=== PATIENT | female | born 1975 | race American Indian/Alaskan Native ===

== ENCOUNTER 2019-02-17 14:01 | Outpatient (CLI) | payer BC ==
[2019-02-17 14:30] LABS: Basophils # (Auto) 0.1 K/mm3 (0.0-0.1); Basophils % (Auto) 0.9 % (0.0-1.8); Eosinophils % (Auto) 0.7 % (0.0-4.3); Hematocrit 33.1 % (30.3-42.9); Hemoglobin 10.7 gm/dl (10.1-14.3); Lymphocytes # (Auto) 2.7 K/mm3 (1.2-5.4); Lymphocytes % (Auto) 38.5 % (13.4-35.0); Mean Corpuscular HGB Conc 32 % (30-34); Mean Corpuscular Volume 79 fl (79-97); Monocytes # (Auto) 0.7 K/mm3 (0.0-0.8); Monocytes % (Auto) 9.3 % (0.0-7.3); Platelet Count 509 K/mm3 (140-440); Red Cell Distribution Width 18.6 % (13.2-15.2)
[2019-02-17 14:58] LABS: Alanine Aminotransferase 9 units/L (7-56); Albumin 3.9 g/dL (3.9-5); BUN/Creatinine Ratio 20; Blood Urea Nitrogen 10 mg/dL (7-17); Calcium 8.9 mg/dL (8.4-10.2); Hemolysis Index 1; Iron 54 ug/dL (37-170)
[2019-02-21 18:11] LABS: Vitamin D, 25-OH, D2 <4 ng/mL
== END 2019-02-17 14:02 | disposition home or self-care (01) ==
LOC: LAB 14:01
PROVIDERS: ATTEND Surgery
DX: Z98.84 Bariatric surgery status (principal)
CPT/HCPCS: 36415; 80053; 82306; 82607; 83540; 83970; 84425; 85025

== ENCOUNTER 2019-02-20 10:23 | Outpatient (CLI) | payer BC ==
--- NOTE | 2019-02-20 14:44 | Cat Scan Report ---
CT ABDOMEN WITH CONTRAST HISTORY: R10.9, UNSPECIFIE ABDOMINAL PAIN. COMPARISON: None. TECHNIQUE: CT images of the abdomen were obtained following administration of intravenous contrast. S agittal and coronal reformatted images. All CT scans at this location are performed using CT dose red uction for ALARA by means of automated exposure control. Please note the pelvis was mistakenly scanne d by the technologist as well. CONTRAST: 100 ml of intravenous contrast administered. FINDINGS: Abdomen: An umbilical hernia with a 2.7 cm neck is identified. The hernia sac deviates to the left l ower quadrant abdominal wall and measures 9 cm in length and 2.2 cm in diameter. Fat and a small amou nt of fluid are incorporated in the hernia sac. No evidence for bowel loops. Normal liver, biliary system, pancreas, spleen, kidneys and adrenal glands. 1 cm right renal cyst is noted. Previous gastric sleeve surgical changes are suspected. The bowel loops are within normal limits othe rwise. Normal appendix. The uterus is enlarged with multiple enhancing fibroids measuring up to 3 to 4 cm in diameter. The ad nexa are unremarkable. The bladder is within normal limits. The aorta is normal caliber. No evidence for ascites, adenopathy or acute inflammation. Lungs/bones: No significant abnormality IMPRESSION: Umbilical hernia containing fat and a small amount of fluid as described. Moderate uterine fibroid disease. Right renal cyst. Gastric sleeve surgical changes are suspected. Signer Name: Mitesh Umanzor Jr, MD Signed: 02/20/2019 2:40 PM Workstation Name: [id number]
== END 2019-02-20 10:24 | disposition home or self-care (01) ==
LOC: CT 10:23
PROVIDERS: ATTEND Surgery
DX: K42.9 Umbilical hernia without obstruction or gangrene (principal); D25.9 Leiomyoma of uterus, unspecified; N28.1 Cyst of kidney, acquired
CPT/HCPCS: 74160; Q9967

== ENCOUNTER 2019-05-20 09:30 | Outpatient (CLI) | payer BC ==
[2019-05-20 10:03] LABS: Basophils % (Auto) 0.5 % (0.0-1.8); Eosinophils # (Auto) 0.1 K/mm3 (0.0-0.4); Eosinophils % (Auto) 1.8 % (0.0-4.3); Hematocrit 35.4 % (30.3-42.9); Hemoglobin 11.2 gm/dl (10.1-14.3); Lymphocytes # (Auto) 2.9 K/mm3 (1.2-5.4); Lymphocytes % (Auto) 50.1 % (13.4-35.0); Mean Corpuscular HGB Conc 32 % (30-34); Mean Corpuscular Volume 80 fl (79-97); Monocytes # (Auto) 0.5 K/mm3 (0.0-0.8); Monocytes % (Auto) 7.7 % (0.0-7.3); Platelet Count 342 K/mm3 (140-440); Red Blood Count 4.45 M/mm3 (3.65-5.03); Red Cell Distribution Width 15.2 % (13.2-15.2)
[2019-05-20 10:23] LABS: Alanine Aminotransferase 9 units/L (7-56); Albumin 4.2 g/dL (3.9-5); BUN/Creatinine Ratio 15; Blood Urea Nitrogen 9 mg/dL (7-17); Calcium 9.2 mg/dL (8.4-10.2); Chol/HDL Ratio 2.94 %; HDL Cholesterol 72 mg/dL (40-59); Hemolysis Index 1; LDL Cholesterol,Direct 152 mg/dL (50-130)
[2019-05-20 11:09] LABS: Hepatitis C Virus Antibody Non-Reactive (NonReactive)
--- NOTE | 2019-05-20 14:20 | Mammography Report ---
DIGITAL SCREENING MAMMOGRAM WITH CAD, 05/20/2019 INDICATION: Baseline screening mammography. TECHNIQUE: Digital bilateral 2D mammography was obtained in the craniocaudal and mediolateral obliq ue projections. This examination was interpreted with the benefit of Computer-Aided Detection analysi s. COMPARISON: None. FINDINGS: Breast Density: The breasts are heterogeneously dense, which may obscure small masses. There is no evidence of dominant mass, suspicious calcifications or architectural distortion in eithe r breast. IMPRESSION: No mammographic evidence of malignancy. Follow up recommendation: Routine yearly BI-RADS Category 1: Negative. A "normal" or negative report should not discourage follow up or biopsy of a clinically significant f inding. A written summary of these findings will be mailed to the patient. The patient will be entered into a mammography reporting system which will generate a reminder letter for the patient's next appointmen t at the appropriate interval. The [employer] recommends yearly mammograms starting at age 40 and continuing as l abby as a woman is in good health. Breast MRI is recommended for women with an approximate 20-25% or greater lifetime risk of breast cancer, including women with a strong family history of breast or ova chau cancer or who have been treated for Hodgkin's disease. Signer Name: Eleno Ivey MD Signed: 05/20/2019 2:15 PM Workstation Name: [id number]
[2019-05-25 05:20] LABS: HIV-1 Antibody Differentiation SEE SCANNED RESULT; HIV-2 Antibody Differentiation SEE SCANNED RESULT
== END 2019-05-20 09:31 | disposition home or self-care (01) ==
LOC: MAMMO 09:30
PROVIDERS: ATTEND Obstetrics & Gynecology
DX: Z12.31 Encounter for screening mammogram for malignant neoplasm of breast (principal); Z13.1 Encounter for screening for diabetes mellitus; Z11.3 Encounter for screening for infections with a predominantly sexual mode of transmission; E78.5 Hyperlipidemia, unspecified; E03.9 Hypothyroidism, unspecified; E07.9 Disorder of thyroid, unspecified
CPT/HCPCS: 36415; 77067; 80053; 80061; 83036; 84443; 85025; 86592; 86689; 86706; 86803

== ENCOUNTER 2020-04-08 22:00 | Emergency (ER) | payer BC ==
[2020-04-08 23:09] VITALS: BP 149/94
--- NOTE | 2020-04-09 00:19 | XRay Report ---
CHEST PA AND LATERAL VIEWS INDICATION: cough. COMPARISON: 09/20/2016 FINDINGS: Support devices: None Heart: Normal and unchanged Lungs/Pleura: No acute pulmonary or pleural findings. IMPRESSION: 1. No significant abnormality and no interval change. Signer Name: Peter Mary MD Signed: 04/09/2020 12:14 AM Workstation Name: [id number]
[2020-04-09] MEDS ORDERED: dexAMETHasone 20 MG/5 ML VIAL IM ONE (01:43)
[2020-04-09] MEDS ORDERED: IPRATROPIUM/ALBUTEROL SULFATE 3 ML AMPUL.NEB IH ONE (01:43)
[2020-04-09] MEDS ORDERED: ACETAMINOPHEN 500 MG TAB PO ONE (01:44)
--- NOTE | 2020-04-09 03:14 | Emergency Department Report ---
- General Chief Complaint: Upper Respiratory Infection Stated Complaint: COUGH Source: patient Mode of arrival: Ambulatory Limitations: No Limitations - History of Present Illness Initial Comments: Patient is a 44-year-old -Gabonese female with a history of tobacco abuse and who presents to the ED with complaint of acute onset persistent nasal and sinus congestion, frontal sinus pressure, headache, persistent dry cough with shortness of breath and wheezing for the last 5 days, worse in the last 2 days. Patient states that she has not been able to sleep because of worsening cough which gets worse when she lays down. Patient states that her shortness of breath also gets worse whenever she has persistent coughing episodes. Patient states that no one else at home or at work is had similar symptoms. Patient denies dizziness, syncope, chest pain, fever, chills, nausea, vomiting, sore throat, back pain, neck pain, change in vision, seizures, abdominal pain, dysuria, urinary frequency and urgency or change in vision and palpitations. MD Complaint: cough, rhinorrhea, nasal congestion, sinus pain -: Sudden, days(s) (5) Severity scale (0 -10): 4 Quality: dull, aching Consistency: intermittent Improves With: nothing Worsens With: nothing Associated Symptoms: denies other symptoms, headache, rhinorrhea, nasal congestion, cough, shortness of breath. denies: fever, chills, myalgias, diap horesis, sore throat, chest pain, abdominal pain, nausea, vomiting, diarrhea, rash, confusion, right sweats, weight loss, epistaxis, hoarseness, ear pain Treatments Prior to Arrival: none - Related Data Previous Rx's Medication Instructions Recorded Last Taken Type Albuterol Sulfate [Proventil Hfa] 1 - 2 puff IH Q6H PRN #1 hfa.aer.ad 04/09/20 Unknown Rx Azithromycin [Zithromax Z-GRETCHEN] 250 mg PO DAILY #6 tablet 04/09/20 Unknown Rx Benzonatate [Tessalon Perles] 100 mg PO Q8HR #30 capsule 04/09/20 Unknown Rx Cetirizine HCl [Zyrtec 10mg tab] 10 mg PO DAILY #30 tablet 04/09/20 Unknown Rx Ibuprofen [Motrin] 600 mg PO Q8H PRN #24 tablet 04/09/20 Unknown Rx methylPREDNISolone [Medrol 4MG 4 mg PO DAILY #21 tab.ds.pk 04/09/20 Unknown Rx DOSEPAK (21 tabs)] Allergies Allergy/AdvReac Type Severity Reaction Status Date / Time No Known Allergies Allergy Unverified 02/20/19 10:23 ED Review of Systems ROS: Stated complaint: COUGH Other details as noted in HPI Constitutional: denies: chills, fever Eyes: denies: eye pain, eye discharge, vision change ENT: congestion, other (Nasal and sinus congestion). denies: ear pain, throat pain Respiratory: cough (Dry cough), shortness of breath, wheezing Cardiovascular: denies: chest pain, palpitations Endocrine: no symptoms reported Gastrointestinal: denies: abdominal pain, nausea, vomiting, diarrhea, hematochezia Genitourinary: denies: urgency, dysuria, discharge Musculoskeletal: denies: back pain, joint swelling, arthralgia Skin: denies: rash, lesions Neurological: headache. denies: weakness, paresthesias Psychiatric: denies: anxiety, depression Hematological/Lymphatic: denies: easy bleeding, easy bruising ED Past Medical Hx - Past Medical History Previous Medical History?: No - Surgical History Past Surgical History?: Yes Additional Surgical History: Gastric Sleeve. C-sections X 3 - Social History Smoking Status: Current Every Day Smoker Substance Use Type: None - Medications Home Medications: Home Medications Medication Instructions Recorded Confirmed Last Taken Type Albuterol Sulfate [Proventil Hfa] 1 - 2 puff IH Q6H PRN #1 hfa.aer.ad 04/09/20 Unknown Rx Azithromycin [Zithromax Z-GRETCHEN] 250 mg PO DAILY #6 tablet 04/09/20 Unknown Rx Benzonatate [Tessalon Perles] 100 mg PO Q8HR #30 capsule 04/09/20 Unknown Rx Cetirizine HCl [Zyrtec 10mg tab] 10 mg PO DAILY #30 tablet 04/09/20 Unknown Rx Ibuprofen [Motrin] 600 mg PO Q8H PRN #24 tablet 04/09/20 Unknown Rx methylPREDNISolone [Medrol 4MG 4 mg PO DAILY #21 tab.ds.pk 04/09/20 Unknown Rx DOSEPAK (21 tabs)] ED Physical Exam - General Limitations: No Limitations General appearance: alert, in no apparent distress - Head Head exam: Present: atraumatic, normocephalic, normal inspection - Eye Eye exam: Present: normal appearance, PERRL, EOMI Pupils: Present: normal accommodation - ENT ENT exam: Present: normal orophraynx, mucous membranes moist, TM's normal bilaterally, normal external ear exam, other (Grossly congested nasal passages; palpable bilateral maxillary sinus tenderness) - Neck Neck exam: Present: normal inspection, full ROM. Absent: tenderness, lymphadenopathy, thyromegaly - Respiratory Respiratory exam: Present: wheezes (Mildly diffuse coarse wheezes throughout). Absent: respiratory distress, rales, rhonchi, chest wall tenderness, accessory muscle use, decreased breath sounds, prolonged expiratory - Cardiovascular Cardiovascular Exam: Present: regular rate, normal rhythm, normal heart sounds. Absent: systolic murmur, diastolic murmur, rubs, gallop - GI/Abdominal GI/Abdominal exam: Present: soft, normal bowel sounds. Absent: tenderness, guarding, rebound, hyperactive bowel sounds, organomegaly - Extremities Exam Extremities exam: Present: normal inspection, full ROM, normal capillary refill - Back Exam Back exam: Present: normal inspection, full ROM. Absent: tenderness, CVA tenderness (R), CVA tenderness (L), muscle spasm, paraspinal tenderness, vertebral tenderness - Neurological Exam Neurological exam: Present: alert, oriented X3, CN II-XII intact, normal gait, reflexes normal - Psychiatric Psychiatric exam: Present: normal affect, normal mood - Skin Skin exam: Present: warm, dry, intact, normal color. Absent: rash ED Course Vital Signs 04/08/20 22:26 Temperature 99.3 F Pulse Rate 86 Respiratory 18 Rate Blood Pressure 149/94 O2 Sat by Pulse 98 Oximetry ED Medical Decision Making - Radiology Data Radiology results: report reviewed, image reviewed Findings [facility] [address] [place] [address] XRay Report Signed Patient: JAMES THOMAS MR#: [id number] : 1975 Acct:[id number] Age/Sex: 44 / F ADM Date: 04/08/20 Loc: ED Attending Dr: Ordering Physician: MAYE WHITLOCK MD Date of Service: 04/08/20 Procedure(s): XR chest routine 2V Accession Number(s): [id number] cc: ED MD CHINYERE Fluoro Time In Minutes: CHEST PA AND LATERAL VIEWS INDICATION: cough. COMPARISON: 09/20/2016 FINDINGS: Support devices: None Heart: Normal and unchanged Lungs/Pleura: No acute pulmonary or pleural findings. IMPRESSION: 1. No significant abnormality and no interval change. Signer Name: Peter Mary MD Signed: 04/09/2020 12:14 AM Workstation Name: [id number] Transcribed By: TM Dictated By: Peter Mary MD Electronically Authenticated By: Peter Mary MD Signed Date/Time: 04/09/2013 DD/ TD/TT: - Medical Decision Making This is a 44-year-old -Gabonese female with a history of tobacco abuse and who presents to the ED with complaint of acute onset persistent nasal and sinus congestion, frontal sinus pressure, headache, persistent dry cough with shortness of breath and wheezing for the last 5 days, worse in the last 2 days. Patient states that she has not been able to sleep because of worsening cough which gets worse when she lays down. Patient states that her shortness of breath also gets worse whenever she has persistent coughing episodes. Patient states that no one else at home or at work is had similar symptoms. In the ED, patient is alert and oriented x3 and is not in distress. Patient was treated in the ED with Decadron and DuoNeb x1. Chest x-ray shows no acute cardiopulmonary abnormalities or pneumonitis. On reevaluation, patient's wheezing resolved with treatment. Patient is hemodynamically stable with oxygen saturation of 98% in room air. Patient was discharged home on medications and advised to follow-up with her primary care physician in 5 to 7 days for reevaluation or return to the ED immediately if symptoms get worse. - Differential Diagnosis Pneumonia; bronchitis; sinusitis; URI; pharyngitis; reactive airway disease Critical care attestation.: If time is entered above; I have spent that time in minutes in the direct care of this critically ill patient, excluding procedure time. ED Disposition Clinical Impression: Acute non-recurrent maxillary sinusitis, Acute upper respiratory infection Acute bronchitis Qualifiers: Bronchitis organism: other organism Qualified Code(s): J20.8 - Acute bronchitis due to other specified organisms Disposition: DC-01 TO HOME OR SELFCARE Is pt being admited?: No Does the pt Need Aspirin: No Condition: Stable Instructions: Acute Bronchitis (ED), Acute Bacterial Rhinosinusitis (ED), Upper Respiratory Infection (ED) Additional Instructions: Chest x-ray shows no acute cardiopulmonary abnormalities or pneumonitis. Therefore take medications with food, drink plenty of fluids and follow-up with your primary care physician in 5 to 7 days for reevaluation. Return to the ED immediately if symptoms get worse. Otherwise consider quitting tobacco smoking habit to improve on your symptoms. Prescriptions: methylPREDNISolone [Medrol 4MG DOSEPAK (21 tabs)] 4 mg PO DAILY #21 tab.ds.pk Ibuprofen [Motrin] 600 mg PO Q8H PRN #24 tablet PRN Reason: Pain Albuterol Sulfate [Proventil Hfa] 1 - 2 puff IH Q6H PRN #1 hfa.aer.ad PRN Reason: Dyspnea Benzonatate [Tessalon Perles] 100 mg PO Q8HR #30 capsule Azithromycin [Zithromax Z-GRETCHEN] 250 mg PO DAILY #6 tablet Cetirizine HCl [Zyrtec 10mg tab] 10 mg PO DAILY #30 tablet Referrals: TOÑO KRUGER MD [Staff Physician] - 3-5 Days Forms: Work/School Release Form(ED) Time of Disposition: 03:19 Print Language: TURKISH
== END 2020-04-09 03:30 | disposition home or self-care (01) ==
LOC: ED 22:00
DX: J06.9 Acute upper respiratory infection, unspecified (principal); J01.00 Acute maxillary sinusitis, unspecified; J20.9 Acute bronchitis, unspecified; F17.200 Nicotine dependence, unspecified, uncomplicated; Z79.899 Other long term (current) drug therapy; Z98.890 Other specified postprocedural states
CPT/HCPCS: 71046; 94640; 96372; 99283; J1100

== ENCOUNTER 2020-05-27 23:43 | Emergency (ER) | payer BC ==
[2020-05-28 00:43] VITALS: BP 132/74
--- NOTE | 2020-05-28 01:55 | Emergency Department Report ---
Minor Respiratory - HPI Chief Complaint: Upper Respiratory Infection Stated Complaint: COUGH Duration: 2 Days Minor Respiratory: Yes Rhinorrhea, Yes Able to Tolerate Fluids, Yes Cough, No Sore Throat, No Ear Pain, No Sick Contacts, No Hemoptysis, No Chest Pain, No Shortness of Breath, No Fever Other History: The patient was evaluated in the emergency department for symptoms described in the history of present illness. He/she was evaluated in the context of the global COVID-19 pandemic, which necessitated consideration that the patient might be at risk for infection with the virus that causes COVID-19. Institutional protocols and algorithms that pertain to the evaluation of patients at risk for COVID-19 are in a state of rapid change based on information released by regulatory bodies including the CDC and federal and state organizations. These policies and algorithms were followed during the patient's care in the emergency department. Please note that these policies, procedures and recommendations changed on a rapid basis. 45-year-old - Malaysian female presents to the emergency room for ongoing cough stuffy nose postnasal drip and runny nose for several weeks. Patient was recently seen here in April 09 for the same complaint and was prescribed albuterol Zithromax Tessalon Perles cetirizine ibuprofen and a Medrol Dosepak. Patient did not follow-up with a primary care provider as she was advised. Patient denies any fever no chills no nausea no vomiting. ED Review of Systems ROS: Stated complaint: COUGH Other details as noted in HPI ED Past Medical Hx - Past Medical History Previous Medical History?: No - Surgical History Past Surgical History?: Yes Additional Surgical History: Gastric Sleeve. C-sections X 3 - Social History Smoking Status: Current Every Day Smoker Substance Use Type: None - Medications Home Medications: Home Medications Medication Instructions Recorded Confirmed Last Taken Type Albuterol Sulfate [Proventil Hfa] 1 - 2 puff IH Q6H PRN #1 hfa.aer.ad 04/09/20 Unknown Rx Azithromycin [Zithromax Z-GRETCHEN] 250 mg PO DAILY #6 tablet 04/09/20 Unknown Rx Benzonatate [Tessalon Perles] 100 mg PO Q8HR #30 capsule 04/09/20 Unknown Rx Cetirizine HCl [Zyrtec 10mg tab] 10 mg PO DAILY #30 tablet 04/09/20 Unknown Rx methylPREDNISolone [Medrol 4MG 4 mg PO DAILY #21 tab.ds.pk 04/09/20 Unknown Rx DOSEPAK (21 tabs)] Fluticasone Furoate [Flonase 1 spray NS QDAY #1 bottle 05/28/20 Unknown Rx Sensimist] Ibuprofen [Motrin 600 MG tab] 600 mg PO Q8H PRN #24 tablet 05/28/20 Unknown Rx Minor Respiratory Exam - Exam General: Vital signs noted. No distress. Alert and acting appropriately. HEENT: Yes Moist Mucous Membranes, No Pharyngeal Erythema, No Pharyngeal Exudates, No Rhinorrhea, No Conjuctival Injection, No Frontal Tenderness, No Maxillary Tenderness Ear: Neither TM Bulge, Neither TM Erythema, Neither EAC Pain, Neither EAC Discharge Neck: Yes Supple, No Adenopathy Lungs: Yes Good Air Exchange, No Wheezes, No Ronchi, No Stridor, No Cough, No Labored Respirations, No Retractions, No Use of Accessory Muscles, No Other Abnormal Lung Sounds Heart: Yes Regular, No Murmur Abdomen: Yes Normal Bowel Sounds, No Tenderness, No Peritoneal Signs Neurologic: Alert and oriented, no deficits. Musculoskeletal: Unremarkable. ED Course Vital Signs 05/28/20 00:31 Temperature 98.3 F Pulse Rate 73 Respiratory 16 Rate Blood Pressure 132/74 O2 Sat by Pulse 100 Oximetry Critical care attestation.: If time is entered above; I have spent that time in minutes in the direct care of this critically ill patient, excluding procedure time. ED Disposition Clinical Impression: Allergic rhinitis Disposition: DC-01 TO HOME OR SELFCARE Is pt being admited?: No Does the pt Need Aspirin: No Condition: Stable Instructions: Cough, Adult, [id number], Allergic Rhinitis, Adult, [id number] Additional Instructions: Continue with the cetirizine 10 mg daily you can take 25 mg of Benadryl at bedtime. Use Flonase nasal spray as prescribed. Continue with the Tessalon Perles for your cough. Is very important you follow-up with a primary care provider. Prescriptions: Fluticasone Furoate [Flonase Sensimist] 1 spray NS QDAY #1 bottle Ibuprofen [Motrin 600 MG tab] 600 mg PO Q8H PRN #24 tablet PRN Reason: Pain Referrals: PRIMARY MD CONY [Primary Care Provider] - 3-5 Days TOÑO KRUGER MD [Staff Physician] - 3-5 Days [facility] [Provider Group] - 3-5 Days Forms: Work/School Release Form(ED)
== END 2020-05-28 01:57 | disposition home or self-care (01) ==
LOC: ED 23:43 → EEVIPCON 23:43 → ED 05-28 01:57
DX: J30.9 Allergic rhinitis, unspecified (principal); F17.200 Nicotine dependence, unspecified, uncomplicated; Z98.890 Other specified postprocedural states; Z79.899 Other long term (current) drug therapy
CPT/HCPCS: 99282

== ENCOUNTER 2020-09-23 21:23 | Emergency (ER) | payer BC ==
--- NOTE | 2020-09-23 21:59 | Emergency Department Report ---
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 No numbness, no tingling, no fever, chills, sweats. ED Review of Systems ROS: Stated complaint: RT HAND INJURY Other details as noted in HPI Comment: All other systems reviewed and negative ED Past Medical Hx - Past Medical History Previous Medical History?: No - Surgical History Past Surgical History?: Yes Additional Surgical History: Gastric Sleeve. C-sections X 3 - Social History Smoking Status: Never Smoker Substance Use Type: None - Medications Home Medications: Home Medications Medication Instructions Recorded Confirmed Last Taken Type Albuterol Sulfate [Proventil Hfa] 1 - 2 puff IH Q6H PRN #1 hfa.aer.ad 04/09/20 Unknown Rx Azithromycin [Zithromax Z-GRETCHEN] 250 mg PO DAILY #6 tablet 04/09/20 Unknown Rx Benzonatate [Tessalon Perles] 100 mg PO Q8HR #30 capsule 04/09/20 Unknown Rx Cetirizine HCl [Zyrtec 10mg tab] 10 mg PO DAILY #30 tablet 04/09/20 Unknown Rx methylPREDNISolone [Medrol 4MG 4 mg PO DAILY #21 tab.ds.pk 04/09/20 Unknown Rx DOSEPAK (21 tabs)] Fluticasone Furoate [Flonase 1 spray NS QDAY #1 bottle 05/28/20 Unknown Rx Sensimist] Ibuprofen [Motrin 600 MG tab] 600 mg PO Q8H PRN #24 tablet 05/28/20 Unknown Rx Indomethacin [Indocin] 25 mg PO Q8H #20 capsule 09/23/20 Unknown Rx Upper Extremity Exam - Exam General: Vital signs noted. No distress. Alert and acting appropriately. Head and Torso: No HEENT Abnormality, No Neck Tenderness, No Chest/Lungs Abnormality, No Abdominal Tenderness, No Back Tenderness Shoulder Exam: Yes Normal Range of Motion in Shoulder, No Shoulder Tenderness, No Clavicle Tenderness, No Shoulder Deformity, No AC Joint Tenderness Arm Exam: No Arm/Humerus Tenderness, No Arm Deformity Elbow: No Elbow Tenderness, No Normal Range of Motion in Elbow, No Elbow Deformity Forearm: No Forearm Tenderness, No Forearm Deformity, No Pain with Pronation, No Pain with Supination Wrist: Yes Normal ROM in Wrist, No Wrist Tenderness, No Wrist Deformity, No Snuffbox Tenderness, No Pain with Axial Thumb Compression Hand: Yes Hand Tenderness, Yes Normal ROM in Digit(s), No Hand Deformity, No Digit Tenderness, No Digit(s) Deformity, No Tendon Dysfunction CMS Exam: No Broken Skin, No Normal Distal Pulses, No Normal Capillary Refill, No Normal Distal Sensation Hand L/R Back: 1 - Pain swelling to this region with some erythema. Worse with flexion. ED Course Vital Signs 09/23/20 21:41 Temperature 98.5 F Pulse Rate 81 Respiratory 18 Rate Blood Pressure 154/105 O2 Sat by Pulse 99 Oximetry ED Medical Decision Making - Medical Decision Making 45-year-old [place] female resents emerged department complaining of atraumatic pain to the right hand and in the area of the fifth metacarpal phalangeal joint which been present for about the last 2 days. X-rays did not reveal any significant pathology to this region although the joint is red swollen with some some tenderness. Pain is worse with palpation. The differential diagnosis does include the following listed below: Bacterial Infection Bone Tumor Cartilage Tear Cartilage Tumor Dislocations Soft Tissue Tumors Synovial Sarcoma Trauma? or Injury Also include in the differential diagnosis is gout as well as pseudogout which I feel is more along the lines of of what she is experiencing tonight. Plan will be to start on anti-inflammatory in the form of a steroid and something for analgesic control will hold off on the colchicine type medication as I do feel that this is more of a pseudogout presentation. Critical care attestation.: If time is entered above; I have spent that time in minutes in the direct care of this critically ill patient, excluding procedure time. ED Disposition Clinical Impression: Arthralgia of hand, right Disposition: DC- TO HOME OR SELFCARE Is pt being admited?: No Does the pt Need Aspirin: No Condition: Stable Instructions: Joint Pain, Hbrz-[id number]-[id number], How to Use Cold Therapy, Calcium Pyrophosphate Deposition, Uric Acid Nephropathy Prescriptions: Indomethacin [Indocin] 25 mg PO Q8H #20 capsule Referrals: PRIMARY CAREMD [Referring] - 3-5 Days [facility] MARKOS CALDERÓN MD [Primary Care Provider] - 3-5 Days [facility] [Provider Group] - 3-5 Days
--- NOTE | 2020-09-23 22:15 | XRay Report ---
RIGHT HAND, 3 VIEWS INDICATION / CLINICAL INFORMATION: pain and swelling. COMPARISON: None available. FINDINGS: No fracture or dislocation. No significant acute osseous abnormality. There is mild degenerative rhodes ge in the DIP joint of the middle finger. No soft tissue abnormality. IMPRESSION: No significant acute osseous or soft tissue abnormality. Signer Name: Darlene Ayala MD Signed: 09/23/2020 10:10 PM Workstation Name: [id number]
[2020-09-23] MEDS ORDERED: KETOROLAC 60 MG/2 ML INJ IM ONE (22:54)
[2020-09-23] MEDS ORDERED: oxyCODONE /ACETAMINOPHEN 5-325MG TAB PO ONE (22:54)
[2020-09-24 00:18] VITALS: BP 129/75
== END 2020-09-23 23:45 | disposition home or self-care (01) ==
LOC: ED 21:23
DX: M25.541 Pain in joints of right hand (principal); Z98.890 Other specified postprocedural states; Z79.899 Other long term (current) drug therapy
CPT/HCPCS: 73130; 96372; 99283; J1885

== ENCOUNTER 2020-10-31 08:00 | Outpatient (CLI) | payer BC ==
[2020-10-31 08:31] LABS: Basophils % (Auto) 0.5 % (0.0-1.8); Eosinophils % (Auto) 0.7 % (0.0-4.3); Hematocrit 31.5 % (30.3-42.9); Lymphocytes # (Auto) 2.7 K/mm3 (1.2-5.4); Lymphocytes % (Auto) 43.4 % (13.4-35.0); Mean Corpuscular HGB Conc 32 % (30-34); Mean Corpuscular Volume 74 fl (79-97); Monocytes # (Auto) 0.4 K/mm3 (0.0-0.8); Monocytes % (Auto) 6.9 % (0.0-7.3); Platelet Count 447 K/mm3 (140-440); Red Blood Count 4.29 M/mm3 (3.65-5.03); Red Cell Distribution Width 16.6 % (13.2-15.2)
[2020-10-31 08:53] LABS: Alanine Aminotransferase 14 units/L (7-56); Albumin 4.2 g/dL (3.9-5); Blood Urea Nitrogen 15 mg/dL (7-17); Calcium 9.1 mg/dL (8.4-10.2); Hemolysis Index 0
[2020-10-31 09:05] LABS: BUN/Creatinine Ratio 25
[2020-10-31 12:14] LABS: Hepatitis C Virus Antibody Non-Reactive (NonReactive)
== END 2020-10-31 08:01 | disposition home or self-care (01) ==
LOC: LAB 08:00
PROVIDERS: ATTEND Obstetrics & Gynecology
DX: Z13.1 Encounter for screening for diabetes mellitus (principal); Z13.29 Encounter for screening for other suspected endocrine disorder; Z13.0 Encounter for screening for diseases of the blood and blood-forming organs and certain disorders involving the immune mechanism; Z13.89 Encounter for screening for other disorder
CPT/HCPCS: 36415; 80053; 82306; 83036; 84443; 85025; 86592; 86689; 86706; 86803

== ENCOUNTER 2020-11-02 18:46 | Observation (INO) | payer BC ==
--- NOTE | 2020-11-02 18:50 | Event Note ---
ED Screening Note Date of service: 11/02/20 Time: 18:49 ED Screening Note: 45-year-old -Surinamese female presents with her son for slurred speech that started at 534 this evening. Patient reports she has a history of hypertension but has not been on any meds. She does not have any allergies to medications and currently does not take any. She is with her son that is able to give the story. This initial assessment/diagnostic orders/clinical plan/treatment(s) is/are subject to change based on patients health status, clinical progression and re- assessment by fellow clinical providers in the ED. Further treatment and workup at subsequent clinical providers discretion. Patient/guardian urged not to elope from the ED as their condition may be serious if not clinically assessed and managed. Initial orders include:
--- NOTE | 2020-11-02 19:00 | Emergency Department Report ---
ED Neuro Deficit HPI - General Chief Complaint: Neuro Symptoms/Deficit Stated Complaint: CODE STROKE Time Seen by Provider: 11/02/20 18:55 Source: family Mode of arrival: Ambulatory Limitations: No Limitations - History of Present Illness Initial Comments: Patient is a 45-year-old female that presents emergency room with difficulty speaking. Patient states that her symptoms started at 1734 today. Patient states that her symptoms are worsening. Patient states having difficulty forming words. Patient states she understands everything she just answers yes no is having difficulty making sounds. Patient denies blurry vision. Patient denies headache. Patient denies any difficulties walking or moving her arms and legs. Patient denies chest pain or shortness of breath. Patient denies recent travel. Patient denies recent international travel. Patient denies exposure to the novel coronavirus. Patient denies sick contacts. Patient denies fever and chills. Patient denies cough. Patient denies diarrhea. Patient denies coming in contact with anybody with symptoms of the novel coronavirus. -: Sudden Location: speech Presenting Symptoms: Present: Unable to Speak Clearly History of same: No Place: home Severity: severe Quality: constant Improves With: none Worsens With: none On Anticoagulants: No Context: sudden onset Associated Symptoms: denies other symptoms. denies: confusion, chest pain, cough, diaphoresis, fever/chills, headaches, loss of appetite, malise, nausea/vomiting, vertigo, seizures, shortness of breath, syncope, weakness Treatments Prior to Arrival: none - Related Data Home Medications: Previous Rx's Medication Instructions Recorded Last Taken Type Albuterol Sulfate [Proventil Hfa] 1 - 2 puff IH Q6H PRN #1 hfa.aer.ad 04/09/20 Unknown Rx Azithromycin [Zithromax Z-GRETCHEN] 250 mg PO DAILY #6 tablet 04/09/20 Unknown Rx Benzonatate [Tessalon Perles] 100 mg PO Q8HR #30 capsule 04/09/20 Unknown Rx Cetirizine HCl [Zyrtec 10mg tab] 10 mg PO DAILY #30 tablet 04/09/20 Unknown Rx methylPREDNISolone [Medrol 4MG 4 mg PO DAILY #21 tab.ds.pk 04/09/20 Unknown Rx DOSEPAK (21 tabs)] Fluticasone Furoate [Flonase 1 spray NS QDAY #1 bottle 05/28/20 Unknown Rx Sensimist] Ibuprofen [Motrin 600 MG tab] 600 mg PO Q8H PRN #24 tablet 05/28/20 Unknown Rx Indomethacin [Indocin] 25 mg PO Q8H #20 capsule 09/23/20 Unknown Rx Allergies/Adverse Reactions: Allergies Allergy/AdvReac Type Severity Reaction Status Date / Time No Known Allergies Allergy Verified 11/02/20 18:50 ED Review of Systems ROS: Stated complaint: CODE STROKE Other details as noted in HPI Constitutional: denies: chills, fever Eyes: denies: eye pain, eye discharge, vision change ENT: denies: ear pain, throat pain Respiratory: denies: cough, shortness of breath, wheezing Cardiovascular: denies: chest pain, palpitations Endocrine: no symptoms reported Gastrointestinal: denies: abdominal pain, nausea, diarrhea Genitourinary: denies: urgency, dysuria, discharge Musculoskeletal: denies: back pain, joint swelling, arthralgia Skin: denies: rash, lesions Neurological: as per HPI. denies: headache, weakness, paresthesias Psychiatric: denies: anxiety, depression Hematological/Lymphatic: denies: easy bleeding, easy bruising ED Past Medical Hx - Past Medical History Previous Medical History?: No - Surgical History Past Surgical History?: Yes Additional Surgical History: Gastric Sleeve. C-sections X 3 - Family History Family history: no significant - Social History Smoking Status: Never Smoker Substance Use Type: None - Medications Home Medications: Home Medications Medication Instructions Recorded Confirmed Last Taken Type Albuterol Sulfate [Proventil Hfa] 1 - 2 puff IH Q6H PRN #1 hfa.aer.ad 04/09/20 Unknown Rx Azithromycin [Zithromax Z-GRETCHEN] 250 mg PO DAILY #6 tablet 04/09/20 Unknown Rx Benzonatate [Tessalon Perles] 100 mg PO Q8HR #30 capsule 04/09/20 Unknown Rx Cetirizine HCl [Zyrtec 10mg tab] 10 mg PO DAILY #30 tablet 04/09/20 Unknown Rx methylPREDNISolone [Medrol 4MG 4 mg PO DAILY #21 tab.ds.pk 04/09/20 Unknown Rx DOSEPAK (21 tabs)] Fluticasone Furoate [Flonase 1 spray NS QDAY #1 bottle 05/28/20 Unknown Rx Sensimist] Ibuprofen [Motrin 600 MG tab] 600 mg PO Q8H PRN #24 tablet 05/28/20 Unknown Rx Indomethacin [Indocin] 25 mg PO Q8H #20 capsule 09/23/20 Unknown Rx ED Neuro Physical Exam - General Limitations: No Limitations General appearance: alert, in no apparent distress Suspected Stroke: Yes - Head Head exam: Present: atraumatic, normocephalic - Eye Eye exam: Present: normal appearance - ENT ENT exam: Present: mucous membranes moist - Neck Neck exam: Present: normal inspection - Respiratory Respiratory exam: Present: normal lung sounds bilaterally. Absent: respiratory distress - Cardiovascular Cardiovascular Exam: Present: regular rate, normal rhythm. Absent: systolic murmur, diastolic murmur, rubs, gallop - GI/Abdominal GI/Abdominal exam: Present: soft, normal bowel sounds - Rectal Rectal exam: Present: deferred - Extremities Exam Extremities exam: Present: normal inspection - Back Exam Back exam: Present: normal inspection - Neurological Exam Neurological exam: Present: alert, oriented X3 - NIHSS Assessment Interval: Baseline 1a. Level of Consciousness: alert/keenly responsive 1b. LOC Questions: answers both correctly 1c. LOC Commands: performs tasks correctly 2. Best Gaze: normal 3. Visual: no visual loss 4. Facial Palsy: normal symmetrical movement 5b. Motor Arm Right: no drift 5a. Motor Arm Left: no drift 6a. Motor Leg Left: no drift 6b. Motor Leg Right: no drift 7. Limb Ataxia: absent 8. Sensory: normal 9. Best Language: no aphasia 10. Dysarthria: mild/moderate dysarthria 11. Extinction/Inattention: no abnormality Total Score: 1 Stroke Severity: Minor Stroke - Psychiatric Psychiatric exam: Present: normal affect, normal mood - Skin Skin exam: Present: warm, dry, intact, normal color. Absent: rash ED Course - Reevaluation(s) Reevaluation #1: Patient able to articulate words better. Patient is still having some mild dysarthria. 11/02/20 19:50 Reevaluation #2: Patient speech has improved. Patient able to say her name with minimal dysarthria. Patient not able to speak in complete sentences clearly. 11/02/20 21:50 Reevaluation #3: I discussed all results with patient. I discussed plan of care with patient. Patient agrees with plan of care and admission. Patient to be admitted to the hospitalist service. 11/02/20 22:09 - Consultations Consultation #1: I discussed case again with the neurologist and neurologist recommends admission for MRI to rule out an acute stroke. 11/02/20 22:04 Consultation #2: Hospitalist consulted for admission. Hospitalist to admit patient. 11/02/20 22:08 - Lab Data Result diagrams: 11/02/20 19:36 11/02/20 19:36 Lab Results 11/02/20 11/02/20 11/02/20 Range/Units 19:36 19:36 19:36 WBC 6.0 (4.5-11.0) K/mm3 RBC 3.96 (3.65-5.03) M/mm3 Hgb 9.3 L (10.1-14.3) gm/dl Hct 29.6 L (30.3-42.9) % MCV 75 L (79-97) fl MCH 24 L (28-32) pg MCHC 31 (30-34) % RDW 17.1 H (13.2-15.2) % Plt Count 369 (140-440) K/mm3 Lymph % (Auto) 42.5 H (13.4-35.0) % [place]iteside % (Auto) 10.3 H (0.0-7.3) % Eos % (Auto) 1.5 (0.0-4.3) % Baso % (Auto) 0.6 (0.0-1.8) % Lymph # (Auto) 2.6 (1.2-5.4) K/mm3 [place] # (Auto) 0.6 (0.0-0.8) K/mm3 Eos # (Auto) 0.1 (0.0-0.4) K/mm3 Baso # (Auto) 0.0 (0.0-0.1) K/mm3 Seg Neutrophils % 45.1 (40.0-70.0) % Seg Neutrophils # 2.7 (1.8-7.7) K/mm3 PT 12.6 (12.2-14.9) Sec. INR 0.96 (0.87-1.13) APTT 31.7 (24.2-36.6) Sec. Thrombin Time 17.9 (15.1-19.6) Sec. Sodium (137-145) mmol/L Potassium (3.6-5.0) mmol/L Chloride (98-107) mmol/L Carbon Dioxide (22-30) mmol/L Anion Gap mmol/L BUN (7-17) mg/dL Creatinine (0.6-1.2) mg/dL Estimated GFR ml/min BUN/Creatinine Ratio % Glucose (65-100) mg/dL Calcium (8.4-10.2) mg/dL Total Bilirubin (0.1-1.2) mg/dL AST (5-40) units/L ALT (7-56) units/L Alkaline Phosphatase (35-129) units/L Total Creatine Kinase 119 (30-135) units/L CK-MB (CK-2) 1.4 (0.0-4.0) ng/mL CK-MB (CK-2) Rel Index 1.1 (0-4) Troponin T < 0.010 (0.00-0.029) ng/mL Total Protein (6.3-8.2) g/dL Albumin (3.9-5) g/dL Albumin/Globulin Ratio % // Range/Units 19:36 WBC (4.5-11.0) K/mm3 RBC (3.65-5.03) M/mm3 Hgb (10.1-14.3) gm/dl Hct (30.3-42.9) % MCV (79-97) fl MCH (28-32) pg MCHC (30-34) % RDW (13.2-15.2) % Plt Count (140-440) K/mm3 Lymph % (Auto) (13.4-35.0) % [place] % (Auto) (0.0-7.3) % Eos % (Auto) (0.0-4.3) % Baso % (Auto) (0.0-1.8) % Lymph # (Auto) (1.2-5.4) K/mm3 [place] # (Auto) (0.0-0.8) K/mm3 Eos # (Auto) (0.0-0.4) K/mm3 Baso # (Auto) (0.0-0.1) K/mm3 Seg Neutrophils % (40.0-70.0) % Seg Neutrophils # (1.8-7.7) K/mm3 PT (12.2-14.9) Sec. INR (0.87-1.13) APTT (24.2-36.6) Sec. Thrombin Time (15.1-19.6) Sec. Sodium 138 (137-145) mmol/L Potassium 3.5 L (3.6-5.0) mmol/L Chloride 106.2 (98-107) mmol/L Carbon Dioxide 21 L D (22-30) mmol/L Anion Gap 14 mmol/L BUN 12 (7-17) mg/dL Creatinine 0.5 L (0.6-1.2) mg/dL Estimated GFR > 60 ml/min BUN/Creatinine Ratio 24 % Glucose 95 (65-100) mg/dL Calcium 8.5 (8.4-10.2) mg/dL Total Bilirubin 0.30 (0.1-1.2) mg/dL AST 14 (5-40) units/L ALT 10 (7-56) units/L Alkaline Phosphatase 32 L (35-129) units/L Total Creatine Kinase (30-135) units/L CK-MB (CK-2) (0.0-4.0) ng/mL CK-MB (CK-2) Rel Index (0-4) Troponin T (0.00-0.029) ng/mL Total Protein 6.3 (6.3-8.2) g/dL Albumin 3.8 L (3.9-5) g/dL Albumin/Globulin Ratio 1.5 % - EKG Data -: EKG Interpreted by Nd EKG shows normal: sinus rhythm, axis, intervals, QRS complexes, ST-T waves Rate: normal - Radiology Data Radiology results: report reviewed NONENHANCED CT SCAN OF THE HEAD: INDICATION / CLINICAL INFORMATION: 45 years Female; MAIN. Slurred speech TECHNIQUE: Routine CT head without contrast. All CT scans at this location are performed using CT dose reduction for ALARA by means of automated exposure control. COMPARISON: None. FINDINGS: BRAIN / INTRACRANIAL CONTENTS: No intracerebral hemorrhage or hemorrhagic lesions; no stroke mimics No acute hemorrhage, mass effect, midline shift, hydrocephalus, or acute, large territorial infarct. No chronic infarct or focal atrophy. Normal brain volume and ventricular/sulcal size for age. No significant white matter abnormality. CRANIOCERVICAL JUNCTION: No significant abnormality. ORBITS: No significant abnormality of visualized orbits. SINUSES / MASTOIDS: No significant abnormality of the visualized paranasal sinuses or mastoid air cells. ADDITIONAL FINDINGS: None. IMPRESSION: No hemorrhage or stroke mimics; no acute focal parenchymal lesion in the colon no CT findings to suggest acute/subacute territorial infarction or acute lacune - Medical Decision Making Patient is a 45-year-old female that presents emergency room with complaints of dysarthria that started at 5 PM. Patient had a code stroke initiated in triage. Patient had a head CT which was negative for acute finding. Patient had labs done which were essentially unremarkable. Patient EKG which was negative for acute findings. I personally reviewed the EKG. EKG shows normal sinus rhythm and no ST changes. Neurology was also consulted early and the code stroke process. Neurology recommends admission to rule out acute stroke with MRI. Patient is not a candidate for TPA due to the low NIH scale. Patient admitted to the hospital service for further evaluation treatment. Critical care time documented due to the multiple reassessments, prolonged time at the bedside, interpretation of diagnostics and labs and discussion with consultants.. - Differential Diagnosis Stroke, weakness, dysarthria, psychosomatic Critical Care Time: Yes Critical care time in (mins) excluding proc time.: 35 Critical care attestation.: If time is entered above; I have spent that time in minutes in the direct care of this critically ill patient, excluding procedure time. Critical Care Time: 35 minutes ED Disposition Clinical Impression: Dysarthria Disposition: OP ADMIT IP TO THIS HOSP Is pt being admited?: Yes Does the pt Need Aspirin: No Condition: Critical Time of Disposition: 22:09
--- NOTE | 2020-11-02 19:09 | Consultation ---
Medications and Allergies Allergies Allergy/AdvReac Type Severity Reaction Status Date / Time No Known Allergies Allergy Verified 11/02/20 18:50 Home Medications Medication Instructions Recorded Confirmed Last Taken Type Albuterol Sulfate [Proventil Hfa] 1 - 2 puff IH Q6H PRN #1 hfa.aer.ad 04/09/20 Unknown Rx Azithromycin [Zithromax Z-GRETCHEN] 250 mg PO DAILY #6 tablet 04/09/20 Unknown Rx Benzonatate [Tessalon Perles] 100 mg PO Q8HR #30 capsule 04/09/20 Unknown Rx Cetirizine HCl [Zyrtec 10mg tab] 10 mg PO DAILY #30 tablet 04/09/20 Unknown Rx methylPREDNISolone [Medrol 4MG 4 mg PO DAILY #21 tab.ds.pk 04/09/20 Unknown Rx DOSEPAK (21 tabs)] Fluticasone Furoate [Flonase 1 spray NS QDAY #1 bottle 05/28/20 Unknown Rx Sensimist] Ibuprofen [Motrin 600 MG tab] 600 mg PO Q8H PRN #24 tablet 05/28/20 Unknown Rx Indomethacin [Indocin] 25 mg PO Q8H #20 capsule 09/23/20 Unknown Rx Assessment and Plan [facility] Consult Note # Demographics Consult Type: Acute Stroke Level 1 (0-4.5 hrs) Patient Location: Emergency Room First Name: Arleth Last Name: Fernando Date of : 1975 Age: 45 Gender: Female Time of Initial Page ( Time): 11/02/2020, 18:50 Time of Return Call ( Time): 11/02/2020, 18:51 # HPI History: 45F with slurred speech today starting 17:00 per patient local time. No blood thinner use. Tightness of her mouth. # Scores Time of exam and NIHSS ( Time): 11/02/2020, 18:55 Level of Consciousness 1a: [0] = Alert; keenly responsive LOC Questions 1b: [0] = Answers both questions correctly LOC Commands 1c: [0] = Performs both tasks correctly Best Gaze 2: [0] = Normal Visual 3: [0] = No visual loss Facial Palsy 4: [0] = Normal symmetrical movements Motor Arm Left 5a: [0] = No drift Motor Arm Right 5b: [0] = No drift Motor Leg Left 6a: [0] = No drift Motor Leg Right 6b: [0] = No drift Limb Ataxia 7: [0] = Absent Sensory 8: [0] = Normal Best Language 9: [0] = No aphasia Dysarthria 10: [1] = [id number] dysarthria Extinction and Inattention 11: [0] = No abnormality NIHSS Total: 1 # Assessment Impression: Other, Dysarthria, no focal deficit however. The speech pattern is atypical for stroke or other neurologic related. Could be mimic. # Logistics Telemedicine: Interactive 2 way audio and visual telecommunication technology was utilized during this visit
--- NOTE | 2020-11-02 19:23 | Cat Scan Report ---
NONENHANCED CT SCAN OF THE HEAD: INDICATION / CLINICAL INFORMATION: 45 years Female; MAIN. Slurred speech TECHNIQUE: Routine CT head without contrast. All CT scans at this location are performed using CT dos e reduction for ALARA by means of automated exposure control. COMPARISON: None. FINDINGS: BRAIN / INTRACRANIAL CONTENTS: No intracerebral hemorrhage or hemorrhagic lesions; no stroke mimics No acute hemorrhage, mass effect, midline shift, hydrocephalus, or acute, large territorial infarct. No chronic infarct or focal atrophy. Normal brain volume and ventricular/sulcal size for age. No sig nificant white matter abnormality. CRANIOCERVICAL JUNCTION: No significant abnormality. ORBITS: No significant abnormality of visualized orbits. SINUSES / MASTOIDS: No significant abnormality of the visualized paranasal sinuses or mastoid air eric ls. ADDITIONAL FINDINGS: None. IMPRESSION: No hemorrhage or stroke mimics; no acute focal parenchymal lesion in the colon no CT findings to sug gest acute/subacute territorial infarction or acute lacune Signer Name: Waldemar Portillo MD Signed: 11/02/2020 7:18 PM Workstation Name: [id number]
[2020-11-02 19:56] LABS: Basophils % (Auto) 0.6 % (0.0-1.8); Eosinophils # (Auto) 0.1 K/mm3 (0.0-0.4); Eosinophils % (Auto) 1.5 % (0.0-4.3); Hematocrit 29.6 % (30.3-42.9); Hemoglobin 9.3 gm/dl (10.1-14.3); Lymphocytes # (Auto) 2.6 K/mm3 (1.2-5.4); Lymphocytes % (Auto) 42.5 % (13.4-35.0); Mean Corpuscular HGB Conc 31 % (30-34); Mean Corpuscular Volume 75 fl (79-97); Monocytes # (Auto) 0.6 K/mm3 (0.0-0.8); Monocytes % (Auto) 10.3 % (0.0-7.3); Platelet Count 369 K/mm3 (140-440); Red Blood Count 3.96 M/mm3 (3.65-5.03); Red Cell Distribution Width 17.1 % (13.2-15.2)
[2020-11-02 20:10] LABS: INR 0.96 (0.87-1.13)
[2020-11-02 20:11] LABS: Partial Thromboplastin Time 31.7 Sec. (24.2-36.6); Thrombin Time 17.9 Sec. (15.1-19.6)
[2020-11-02 21:12] LABS: Creatine Kinase MB 1.4 ng/mL (0.0-4.0)
[2020-11-02 21:18] LABS: Alanine Aminotransferase 10 units/L (7-56); Albumin 3.8 g/dL (3.9-5); Blood Urea Nitrogen 12 mg/dL (7-17); Calcium 8.5 mg/dL (8.4-10.2); Hemolysis Index 6
[2020-11-02 21:29] LABS: BUN/Creatinine Ratio 24
[2020-11-02] MEDS ORDERED: ONDANSETRON 4 MG/2 ML INJ IV PRN (22:45)
[2020-11-02] MEDS ORDERED: ACETAMINOPHEN 325 MG TAB PO PRN (22:45)
[2020-11-02] MEDS ORDERED: MAGNESIUM HYDROXIDE (MOM) ORAL LIQD UDC PO PRN (22:45)
[2020-11-02] MEDS ORDERED: ALUM-MAG HYDROXIDE-SIMETHICONE 200-200-20MG/5ML ORAL LIQD 30 ML PO PRN (22:45)
[2020-11-02] MEDS ORDERED: SENNOSIDES 8.6 MG TAB PO PRN (22:45)
--- NOTE | 2020-11-02 22:59 | History and Physical Report ---
History of Present Illness Date of examination: 11/02/20 Date of admission: 11/02/20 22:11 Chief complaint: Dysarthria History of present illness: Patient is a 45-year-old female that presents emergency room with difficulty speaking. Patient states that her symptoms started at 1734 today. Patient states that her symptoms are worsening. Patient states having difficulty forming words. Patient states she understands everything she just answers yes no is having difficulty making sounds. Patient denies blurry vision. Patient denies headache. Patient denies any difficulties walking or moving her arms and legs. Patient denies chest pain or shortness of breath. ED work-up showed WBC 6.0 hemoglobin 9.3, platelet 369, sodium 138 potassium 3.5 creatinine 0.5, serum glucose 95 Calcium 8.5, troponin [address] of the head negative for acute finding. Patient seen in the ED at bedside on room air. Patient alert and oriented x3. Vital signs stable O2 sat 97 to 100% on room air. Patient reported history of slurred speech and difficulty bringing out her wor ds. She denies chest pain and shortness of breath at the time of assessment. She reported anxiety and overworking herself recently. She reported also history of tachycardia that resolved without treatment. Neurologist was consulted. MRI of the brain and echocardiogram ordered. I reviewed the patient medical record, lab values, and vital signs and no acute finding. We will follow-up with results of echo and MRI -r/o CVA Past History Past Medical History: hypertension, hyperlipidemia Past Surgical History: Other (gastric sleeve surgery) Social history: smoking Family history: diabetes, hypertension, stroke Medications and Allergies Allergies Allergy/AdvReac Type Severity Reaction Status Date / Time No Known Allergies Allergy Verified 11/02/20 18:50 Home Medications Medication Instructions Recorded Confirmed Last Taken Type Albuterol Sulfate [Proventil Hfa] 1 - 2 puff IH Q6H PRN #1 hfa.aer.ad 04/09/20 Unknown Rx Azithromycin [Zithromax Z-GRETCHEN] 250 mg PO DAILY #6 tablet 04/09/20 Unknown Rx Benzonatate [Tessalon Perles] 100 mg PO Q8HR #30 capsule 04/09/20 Unknown Rx Cetirizine HCl [Zyrtec 10mg tab] 10 mg PO DAILY #30 tablet 04/09/20 Unknown Rx methylPREDNISolone [Medrol 4MG 4 mg PO DAILY #21 tab.ds.pk 04/09/20 Unknown Rx DOSEPAK (21 tabs)] Fluticasone Furoate [Flonase 1 spray NS QDAY #1 bottle 05/28/20 Unknown Rx Sensimist] Ibuprofen [Motrin 600 MG tab] 600 mg PO Q8H PRN #24 tablet 05/28/20 Unknown Rx Indomethacin [Indocin] 25 mg PO Q8H #20 capsule 09/23/20 Unknown Rx Active Meds: Active Medications Acetaminophen (Acetaminophen 325 Mg Tab) 650 mg PO Q4H PRN PRN Reason: Pain MILD(1-3)/Fever >100.5/[place] Al Hydrox/Mg Hydrox/Simethicone (Alum-Mag Hydroxide-Simethicone 224-261-32er/5ml Oral Liqd 30 Ml) 30 ml PO Q4H PRN PRN Reason: Indigestion Famotidine (Famotidine 20 Mg/2 Ml Inj) 20 mg IV BID ABHI Magnesium Hydroxide (Magnesium Hydroxide (Mom) Oral Liqd Udc) 30 ml PO Q4H PRN PRN Reason: Constipation Ondansetron HCl (Ondansetron 4 Mg/2 Ml Inj) 4 mg IV Q8H PRN PRN Reason: Nausea And Vomiting Pravastatin Sodium (Pravastatin 40 Mg Tab) 40 mg PO QHS ABHI Senna (Sennosides 8.6 Mg Tab) 8.6 mg PO Q12HR PRN PRN Reason: Constipation Sodium Chloride (Sodium Chloride 0.9% 10 Ml Flush Syringe) 10 ml IV BID ABHI Sodium Chloride (Sodium Chloride 0.9% 10 Ml Flush Syringe) 10 ml IV PRN PRN PRN Reason: LINE FLUSH Review of Systems Ears, nose, mouth and throat: no bleeding gums Cardiovascular: no chest pain, no shortness of breath Respiratory: cough Gastrointestinal: no melena Genitourinary Female: no hematuria Rectal: no hemorrhoids Musculoskeletal: no neck stiffness, no neck pain Integumentary: no rash, no pruritis Neurological: no vertigo, no headaches, no change in speech Psychiatric: anxiety, depression Endocrine: other Hematologic/Lymphatic: no easy bruising, no easy bleeding Allergic/Immunologic: no urticaria Exam - Constitutional Vitals: Temp Pulse Resp BP Pulse Ox 98.0 F 62 17 104/50 99 11/02/20 19:25 11/02/20 22:30 11/02/20 22:30 11/02/20 22:30 11/02/20 22:30 General appearance: Present: mild distress, obese - EENT Eyes: Present: PERRL ENT: hearing intact, clear oral mucosa - Neck Neck: Present: supple, normal ROM - Respiratory Respiratory effort: normal Respiratory: bilateral: CTA - Cardiovascular Heart Sounds: Present: S1 & S2. Absent: rub, click - Extremities Extremities: pulses symmetrical, No edema Peripheral Pulses: within normal limits - Abdominal General gastrointestinal: Present: soft, non-tender, non-distended, normal bowel sounds Female genitourinary: Present: normal - Integumentary Integumentary: Present: clear, warm, dry - Musculoskeletal Musculoskeletal: gait normal, strength equal bilaterally - Psychiatric Psychiatric: appropriate mood/affect, intact judgment & insight - Neurologic Neurologic: CNII-XII intact, moves all extremities HEART Score - HEART Score Troponin: Troponin T < 0.010 ng/mL (0.00-0.029) 11/02/20 19:36 Results - Labs CBC & Chem 7: 11/02/20 19:36 11/02/20 19:36 Labs: Abnormal lab results 11/02/20 11/02/20 Range/Units 19:36 19:36 Hgb 9.3 L (10.1-14.3) gm/dl Hct 29.6 L (30.3-42.9) % MCV 75 L (79-97) fl MCH 24 L (28-32) pg RDW 17.1 H (13.2-15.2) % Lymph % (Auto) 42.5 H (13.4-35.0) % [place] % (Auto) 10.3 H (0.0-7.3) % Potassium 3.5 L (3.6-5.0) mmol/L Carbon Dioxide 21 L D (22-30) mmol/L Creatinine 0.5 L (0.6-1.2) mg/dL Alkaline Phosphatase 32 L (35-129) units/L Albumin 3.8 L (3.9-5) g/dL Assessment and Plan - Patient Problems (1) TIA (transient ischemic attack) Current Visit: Yes Status: Acute Plan to address problem: CT of the head -negative ECHO and MRI of the brain -ordered-f/u with result Neurologist consult ASA and statin (2) Hypertension Current Visit: Yes Status: Resolved Plan to address problem: monitor blood pressure Patient not on home bp med after Gastric surgery for weight loss. PRN Hydralazine (3) Hyperlipidemia Current Visit: Yes Status: Resolved Plan to address problem: Patient reports hx of hyperlidemia-has resolved after gastric sleeve Check Lipid profile. (4) Dysarthria Current Visit: Yes Status: Acute Plan to address problem: resolved-speech clear at the time of assessment (5) DVT prophylaxis Current Visit: Yes Status: Acute Plan to address problem: SQ lovenox
[2020-11-03] MEDS ORDERED: hydrALAZINE 20 MG/1 ML INJ IV PRN (02:42)
[2020-11-03 05:16] LABS: Basophils % (Auto) 0.7 % (0.0-1.8); Eosinophils # (Auto) 0.1 K/mm3 (0.0-0.4); Eosinophils % (Auto) 1.1 % (0.0-4.3); Hematocrit 28.9 % (30.3-42.9); Hemoglobin 9.1 gm/dl (10.1-14.3); Lymphocytes # (Auto) 2.6 K/mm3 (1.2-5.4); Lymphocytes % (Auto) 46.9 % (13.4-35.0); Mean Corpuscular HGB Conc 31 % (30-34); Mean Corpuscular Volume 74 fl (79-97); Monocytes # (Auto) 0.5 K/mm3 (0.0-0.8); Platelet Count 379 K/mm3 (140-440); Red Blood Count 3.93 M/mm3 (3.65-5.03); Red Cell Distribution Width 17.3 % (13.2-15.2)
[2020-11-03 05:48] LABS: Blood Urea Nitrogen 9 mg/dL (7-17); Calcium 7.9 mg/dL (8.4-10.2); Chol/HDL Ratio 3.21 %; HDL Cholesterol 55 mg/dL (40-59); Hemolysis Index 23; LDL Cholesterol,Direct 125 mg/dL (50-130)
[2020-11-03 05:52] LABS: BUN/Creatinine Ratio 15
[2020-11-03] MEDS ORDERED: ENOXAPARIN 40 MG/0.4 ML INJ SUB-Q SCH (10:00)
[2020-11-03] MEDS ORDERED: FAMOTIDINE 20 MG/2 ML INJ IV SCH (10:00)
[2020-11-03] MEDS ORDERED: ASPIRIN EC 81 MG TAB PO SCH (10:00)
--- NOTE | 2020-11-03 10:10 | Magnetic Resonance Report ---
MRI BRAIN 11/03/2020 INDICATION / CLINICAL INFORMATION: Slurred speech. Stroke.. TECHNIQUE: Multiplanar, multisequence MR images of the brain were obtained. COMPARISON: None available. FINDINGS: BRAIN / INTRACRANIAL CONTENTS: Unenhanced MR images of the brain demonstrate no evidence of acute abn ormality. Ventricles and sulci are normal in size and shape. There is no evidence of acute or chronic ischemic injury, hemorrhage, or mass. There are no abnormal extra-axial fluid collections. EXTRACRANIAL: Unremarkable CRANIOCERVICAL JUNCTION: No significant abnormality. VASCULAR FLOW-VOIDS: No significant abnormality. IMPRESSION: Negative unenhanced MRI of the brain. Signer Name: Jose E Santos MD Signed: 11/03/2020 10:06 AM Workstation Name: [id number]
--- NOTE | 2020-11-03 10:54 | Electrocardiograph Report ---
[facility] Test Date: 2020-11-02 Test Time: 19:25:59 Pat Name: JAMES THOMAS Department: Room: A457 1 Gender: F Vascular Ultrasound Technician: CAMI : 1975 Requested By: TY ROJAS Order Number: [id number] Reading MD: Matthieu Hutchinson Measurements Intervals [place] Rate: 70 P: 57 NC: 179 QRS: 25 QRSD: 74 T: 33 QT: 399 QTc: 430 Interpretive Statements Sinus rhythm No previous ECG available for comparison Electronically Signed On 11-03-2020 10:53:27 EDT by Matthieu Hutchinson
[2020-11-03 12:46] VITALS: BP 121/59
--- NOTE | 2020-11-03 13:05 | XRay Report ---
RIGHT ANKLE 2 VIEW(S) INDICATION / CLINICAL INFORMATION: swelling COMPARISON: None available. FINDINGS: BONES / JOINT(S): No acute fracture or subluxation. No significant arthritis. SOFT TISSUES: No significant abnormality. ADDITIONAL FINDINGS: None. Signer Name: Clarke Verde MD Signed: 11/03/2020 1:01 PM Workstation Name: [id number]
--- NOTE | 2020-11-03 13:34 | History and Physical Report ---
History of Present Illness Date of examination: 11/03/20 Date of admission: 11/02/20 22:11 Chief complaint: Dysarthia History of present illness: Dysarthria History of present illness: Patient is a 45-year-old female that presents emergency room with difficulty speaking. Patient states that her symptoms started at 1734 today. Patient s tates that her symptoms are worsening. Patient states having difficulty forming words. Patient states she understands everything she just answers yes no is having difficulty making sounds. Patient denies blurry vision. Patient denies headache. Patient denies any difficulties walking or moving her arms and legs. Patient denies chest pain or shortness of breath. According to pt. since saturday she is with intermittent CP and legs swelling -- she was anxious about her son -- and usually when get anxious she get intermittent symptoms of CP tightness at time speech difficulty she smokes 1-2 cigarett and day drink socially she is taking no medications at home ED work-up showed WBC 6.0 hemoglobin 9.3, platelet 369, sodium 138 potassium 3.5 creatinine 0.5, serum glucose 95 Calcium 8.5, troponin [address] of the head negative for acute finding. telle neurology was consulted. MRI of the brain and echocardiogram ordered. I reviewed the patient medical record, lab values, and vital signs and no acute finding. We will follow-up with results of echo and MRI -r/o CVA Past History Past Medical History: hypertension, hyperlipidemia Past Surgical History: Other (gastric sleeve surgery) Social history: smoking Family history: diabetes, hypertension, stroke Medications and Allergies Allergies Allergy/AdvReac Type Severity Reaction Status Date / Time No Known Allergies Allergy Verified 11/02/20 18:50 Home Medications Medication Instructions Recorded Confirmed Last Taken Type Albuterol Sulfate [Proventil Hfa] 1 - 2 puff IH Q6H PRN #1 hfa.aer.ad 04/09/20 Unknown Rx Azithromycin [Zithromax Z-GRETCHEN] 250 mg PO DAILY #6 tablet 04/09/20 Unknown Rx Benzonatate [Tessalon Perles] 100 mg PO Q8HR #30 capsule 04/09/20 Unknown Rx Cetirizine HCl [Zyrtec 10mg tab] 10 mg PO DAILY #30 tablet 04/09/20 Unknown Rx methylPREDNISolone [Medrol 4MG 4 mg PO DAILY #21 tab.ds.pk 04/09/20 Unknown Rx DOSEPAK (21 tabs)] Fluticasone Furoate [Flonase 1 spray NS QDAY #1 bottle 05/28/20 Unknown Rx Sensimist] Ibuprofen [Motrin 600 MG tab] 600 mg PO Q8H PRN #24 tablet 05/28/20 Unknown Rx Indomethacin [Indocin] 25 mg PO Q8H #20 capsule 09/23/20 Unknown Rx Active Meds: Active Medications Acetaminophen (Acetaminophen 325 Mg Tab) 650 mg PO Q4H PRN PRN Reason: Pain MILD(1-3)/Fever >100.5/CHAMPAGNE Al Hydrox/Mg Hydrox/Simethicone (Alum-Mag Hydroxide-Simethicone 510-466-01xg/5ml Oral Liqd 30 Ml) 30 ml PO Q4H PRN PRN Reason: Indigestion Famotidine (Famotidine 20 Mg/2 Ml Inj) 20 mg IV BID ABHI Magnesium Hydroxide (Magnesium Hydroxide (Mom) Oral Liqd Udc) 30 ml PO Q4H PRN PRN Reason: Constipation Ondansetron HCl (Ondansetron 4 Mg/2 Ml Inj) 4 mg IV Q8H PRN PRN Reason: Nausea And Vomiting Pravastatin Sodium (Pravastatin 40 Mg Tab) 40 mg PO QHS ABHI Senna (Sennosides 8.6 Mg Tab) 8.6 mg PO Q12HR PRN PRN Reason: Constipation Sodium Chloride (Sodium Chloride 0.9% 10 Ml Flush Syringe) 10 ml IV BID ABHI Sodium Chloride (Sodium Chloride 0.9% 10 Ml Flush Syringe) 10 ml IV PRN PRN PRN Reason: LINE FLUSH Review of Systems Ears, nose, mouth and throat: no bleeding gums Cardiovascular: no chest pain, no shortness of breath Respiratory: cough Gastrointestinal: no melena Genitourinary Female: no hematuria Rectal: no hemorrhoids Musculoskeletal: no neck stiffness, no neck pain Integumentary: no rash, no pruritis Neurological: no vertigo, no headaches, no change in speech Psychiatric: anxiety, depression Endocrine: other Hematologic/Lymphatic: no easy bruising, no easy bleeding Allergic/Immunologic: no urticaria Past History Past Medical History: hypertension, hyperlipidemia Past Surgical History: Other (gastric sleeve surgery) Social history: smoking Family history: diabetes, hypertension, stroke Medications and Allergies Allergies Allergy/AdvReac Type Severity Reaction Status Date / Time No Known Allergies Allergy Verified 11/02/20 18:50 Home Medications Medication Instructions Recorded Confirmed Last Taken Type Benzonatate [Tessalon Perles] 100 mg PO Q8HR #30 capsule 04/09/20 11/03/20 Unknown Rx Ibuprofen [Motrin 600 MG tab] 600 mg PO Q8H PRN #24 tablet 05/28/20 11/03/20 Unknown Rx Active Meds: Active Medications Acetaminophen (Acetaminophen 325 Mg Tab) 650 mg PO Q4H PRN PRN Reason: Pain MILD(1-3)/Fever >100.5/[place] Al Hydrox/Mg Hydrox/Simethicone (Alum-Mag Hydroxide-Simethicone 797-374-20ig/5ml Oral Liqd 30 Ml) 30 ml PO Q4H PRN PRN Reason: Indigestion Aspirin (Aspirin Ec 81 Mg Tab) 81 mg PO QDAY [facility] Last Admin: 11/03/20 10:52 Dose: 81 mg Documented by: Atorvastatin Calcium (Atorvastatin 40 Mg Tab) 40 mg PO QHS ABHI Enoxaparin Sodium (Enoxaparin 40 Mg/0.4 Ml Inj) 40 mg SUB-Q QDAY@1000 ABHI; Protocol Last Admin: 11/03/20 10:53 Dose: 40 mg Documented by: Famotidine (Famotidine 20 Mg/2 Ml Inj) 20 mg IV BID [facility] Last Admin: 11/03/20 10:53 Dose: 20 mg Documented by: Hydralazine HCl (Hydralazine 20 Mg/1 Ml Inj) 5 mg IV Q4HR PRN PRN Reason: SBP >/=160; DBP >/=100 Magnesium Hydroxide (Magnesium Hydroxide (Mom) Oral Liqd Udc) 30 ml PO Q4H PRN PRN Reason: Constipation Ondansetron HCl (Ondansetron 4 Mg/2 Ml Inj) 4 mg IV Q8H PRN PRN Reason: Nausea And Vomiting Senna (Sennosides 8.6 Mg Tab) 8.6 mg PO Q12HR PRN PRN Reason: Constipation Sodium Chloride (Sodium Chloride 0.9% 10 Ml Flush Syringe) 10 ml IV BID [facility] Last Admin: 11/03/20 10:53 Dose: 10 ml Documented by: Sodium Chloride (Sodium Chloride 0.9% 10 Ml Flush Syringe) 10 ml IV PRN PRN PRN Reason: LINE FLUSH Physical Examination - Vital Signs Vital Signs: Vital Signs Pulse Resp BP Pulse Ox 73 17 142/83 99 11/02/20 19:16 11/02/20 19:16 11/02/20 19:16 11/02/20 19:16 - Constitutional General appearance: comfortable - EENT EENT: Present: PERRL, mucous membranes moist - Respiratory Respiratory: Present: chest non-tender, lungs clear - Cardiovascular Cardiovascular: Present: regular rate, normal S1, normal S2 Extremities: Present: no peripheral edema bilatateraly - Gastrointestinal Gastrointestinal: Present: normoactive bowel sounds - Integumentary Integumentary: Present: normal - Neurologic Cranial nerve examination: PERRL, EOMI, intact Speech examination: intact Sensorimotor examination: intact Detailed motor examination: grossly full strength in Results - Laboratory Findings CBC and BMP: 11/03/20 04:16 11/03/20 04:16 Abnormal Lab Findings: Abnormal Labs 11/02/20 11/02/20 11/03/20 19:36 19:36 04:16 Hgb 9.3 L 9.1 L Hct 29.6 L 28.9 L MCV 75 L 74 L MCH 24 L 23 L RDW 17.1 H 17.3 H Lymph % (Auto) 42.5 H 46.9 H Wright % (Auto) 10.3 H 9.0 H Potassium 3.5 L Chloride Carbon Dioxide 21 L D Creatinine 0.5 L Calcium Alkaline Phosphatase 32 L Albumin 3.8 L 11/03/20 04:16 Hgb Hct MCV MCH RDW Lymph % (Auto) Wright % (Auto) Potassium Chloride 107.3 H Carbon Dioxide Creatinine Calcium 7.9 L Alkaline Phosphatase Albumin Assessment and Plan - Patient Problems # TIA (transient ischemic attack)Vs Anxiety CT of the head -negative ECHO and MRI of the brain - ASA and statin psychiatry to see # HTN Monitor blood pressure Patient not on home bp med after Gastric surgery for weight loss. PRN Hydralazine # Hyperlipidemia Patient reports hx of hyperlidemia-has resolved after gastric sleeve Check Lipid profile.,LDl#125 (4) Dysarthria resolved-speech clear at the time of assessment? -Anxiety vs TIA (5) DVT prophylaxis SQ lovenox will follow
--- NOTE | 2020-11-03 14:23 | Discharge Summary ---
Providers - Providers Date of Admission: 11/02/20 22:11 Date of discharge: 11/03/20 Attending physician: NEPTALI DAVIS 11/02/20 22:46 Occupational Therapy Evaluate and Treat [CONS] Routine Comment: Reason For Exam: Neuro deficits Physical Therapy Evaluation and Treat [CONS] Routine Comment: Reason For Exam: Neuro deficits 11/03/20 10:45 Consult to Physician [CONS] Routine Comment: Consulting Provider: VALENTE COSBY Physician Instructions: Reason For Exam: TIA Primary care physician: [employer] Hospitalization Condition: Good Hospital course: This is a 45 -year-old female presented to the hospital with right leg weakness and difficulty speaking. Patient reported history of slurred speech and difficulty bringing out her words. Patient was admitted to the hospital with acute stroke protocol, tele-neurology was consulted in the ER. Patient was not found to be a candidate for TPA. ED work-up showed WBC 6.0 hemoglobin 9.3, platelet 369, sodium 138 potassium 3.5 creatinine 0.5, serum glucose 95, Calcium 8.5, troponin 0 0.01. Patient was placed on antiplatelets, statin and allowed for permissive hypertension. CT head in the ER did not show any acute abnormality. Patient was further evaluated with MRI of the brain, 2D echo. MRI of the brain showed no infract , 2D echo had preserved EF. PT OT evaluated the patient and recommended no additional need . Neurology further evaluated the patient and recommended to continue current management and further outpatient follow-up. Patient was then discharge home in stable condition. Disposition: DC- TO HOME OR SELFCARE Final Discharge Diagnosis (Prints w/discharge instructions): TIA. HLD. Obesi ty. hypokalemia Time spent for discharge: 34 minutes Core Measure Documentation - Palliative Care Palliative Care/ Comfort Measures: Not Applicable - Core Measures Any of the following diagnoses?: none Exam - Physical Exam Narrative exam: GENERAL: well-developed and obese AAF lying on bed appeared to be in no discomfort. HEENT: Normocephalic. Atraumatic. No conjunctival congestion or icterus. P atient has moist mucous membranes. NECK: Supple. Trachea midline. CHEST/LUNGS: Clear to auscultated bilaterally, breathing nonlabored. No wheezes crackles or rhonchi. HEART/CARDIOVASCULAR: Regular in rate and rhythm. S1 and S2 positive. ABDOMEN: Abdomen is soft, nontender. Patient has normal bowel sounds. SKIN: There is no rash. Warm and dry. NEURO: No focal motor deficit. Follows command. MUSCULOSKELETAL: No joint effusion or tenderness. EXTRIMITY: No edema, no cyanosis or clubbing. PSYCH: Cooperative. - Constitutional Vitals: Temp Pulse Resp BP Pulse Ox 98.8 F 71 19 121/59 99 11/03/20 08:00 11/03/20 12:45 11/03/20 08:00 11/03/20 12:45 11/03/20 12:45 Plan Activity: advance as tolerated Weight Bearing Status: Weight Bear as Tolerated Diet: low fat, low salt Additional Instructions: Outpatient follow-up with psychiatry for anxiety Follow up with: PRIMARY CARE, [Primary Care Provider] - 7 Days Forms: Work/School Release Form(ED) Prescriptions: AtorvaSTATin [Lipitor] 40 mg PO QHS #30 tablet Aspirin EC [Halfprin EC] 81 mg PO QDAY #30 tablet Ibuprofen [Motrin 600 MG tab] 600 mg PO Q8H PRN #14 tablet PRN Reason: Pain
[2020-11-03] MEDS ORDERED: PRAVASTATIN 40 MG TAB PO SCH (22:00)
== END 2020-11-03 17:57 | disposition home or self-care (01) ==
LOC: ED 18:46 → 4A 22:11
PROVIDERS: ADMIT Internal Medicine Geriatric Medicine; ATTEND Internal Medicine
DX: G45.9 Transient cerebral ischemic attack, unspecified (principal); I10 Essential (primary) hypertension; E78.5 Hyperlipidemia, unspecified; R47.1 Dysarthria and anarthria; R29.701 NIHSS score 1; Z98.890 Other specified postprocedural states; Z98.891 History of uterine scar from previous surgery; Z79.899 Other long term (current) drug therapy
CPT/HCPCS: 36415; 70450; 70551; 73600; 80048; 80053; 80061; 82550; 82553; 84484; 84550; 85025; 85610; 85670; 85730; 93005; 93306; 96372; 96374; 97161; 99291; G0378; J1650

== ENCOUNTER 2021-11-22 08:21 | Outpatient (CLI) | payer BC ==
--- NOTE | 2021-11-23 10:03 | Mammography Report ---
DIGITAL SCREENING MAMMOGRAM WITH TOMOSYNTHESIS WITH CAD, 11/22/2021 CLINICAL INFORMATION / INDICATION: Routine Screening Mammography. TECHNIQUE: Digital bilateral 2D and 3D mammography with tomosynthesis was obtained in the craniocaud al and mediolateral oblique projections. Computer-Aided Detection (CAD) analysis was used for interp retation of this study. COMPARISON: 05/20/2019 FINDINGS: Breast Density: The breasts are heterogeneously dense, which may obscure small masses. No dominant mass, suspicious calcifications, or architectural distortion in either breast. There has been no significant interval change. IMPRESSION: No mammographic evidence of malignancy. Follow up recommendation: Routine yearly screening mammogram. BI-RADS Category 1: NEGATIVE A "normal" or negative report should not discourage follow up or biopsy of a clinically significant f inding. A written summary of these findings will be mailed to the patient. The patient will be entered into a mammography reporting system which will generate a reminder letter for the patient's next appointmen t at the appropriate interval. The [employer] recommends yearly mammograms starting at age 40 and continuing as l abby as a woman is in good health. Breast MRI is recommended for women with an approximate 20-25% or greater lifetime risk of breast cancer, including women with a strong family history of breast or ova chau cancer or who have been treated for Hodgkin's disease. Signer Name: Anuel Grimaldo MD Signed: 11/23/2021 9:58 AM Workstation Name: [employer]
== END 2021-11-22 08:22 | disposition home or self-care (01) ==
LOC: SPVWC 08:21
PROVIDERS: ATTEND Obstetrics & Gynecology
DX: Z12.31 Encounter for screening mammogram for malignant neoplasm of breast (principal)
CPT/HCPCS: 77063; 77067

== ENCOUNTER 2021-11-29 09:49 | Outpatient (CLI) | payer BC ==
--- NOTE | 2021-11-29 10:47 | Ultrasound Report ---
Transvaginal ultrasound INDICATION: Leiomyoma FINDINGS: Uterus measures 12.2 x 7.6 x 7.7 cm. Multiple uterine fibroids are identified. One of the l argest fibroids seen measuring 3.1 x 3.0 x 3.2 cm near the fundus. Additional fibroids measuring 3 cm are also identified posteriorly cervix and fundus. Right ovary measures 2.7 x 1.6 x 1.9 cm. Left ova ry is not visualized. IMPRESSION: Multiple uterine fibroids. Signer Name: Price Ibarra MD Signed: 11/29/2021 10:42 AM Workstation Name: [id number]
== END 2021-11-29 09:50 | disposition home or self-care (01) ==
LOC: US 09:49
PROVIDERS: ATTEND Obstetrics & Gynecology
DX: D25.1 Intramural leiomyoma of uterus (principal)
CPT/HCPCS: 76830

== ENCOUNTER 2022-02-05 07:20 | Outpatient (CLI) | payer BC ==
--- NOTE | 2022-02-05 09:15 | XRay Report ---
CHEST 2 VIEWS INDICATION / CLINICAL INFORMATION: HERNIA. COMPARISON: None available. FINDINGS: SUPPORT DEVICES: None. HEART / MEDIASTINUM: No significant abnormality. LUNGS / PLEURA: No significant pulmonary or pleural abnormality. No pneumothorax. ADDITIONAL FINDINGS: No significant additional findings. IMPRESSION: 1. No acute findings. Signer Name: Goran Hopper MD Signed: 02/05/2022 9:10 AM Workstation Name: [email or web address]
--- NOTE | 2022-02-05 10:01 | Cat Scan Report ---
CT ABDOMEN AND PELVIS WITHOUT CONTRAST INDICATION: HERNIA/SURGERY CLEARANCE. TECHNIQUE: Axial CT images were obtained through the abdomen and pelvis without IV contrast. All CT scans at [facility] location are performed using CT dose reduction for ALARA by means of automated exposure control. COMPARISON: CT abdomen pelvis 02/20/2019 FINDINGS: LOWER CHEST: No significant abnormality. LIVER: No significant abnormality. GALLBLADDER: No significant abnormality. BILE DUCTS: No significant abnormality. PANCREAS: No significant abnormality. SPLEEN: No significant abnormality. ADRENALS: No significant abnormality. RIGHT KIDNEY and URETER: No significant abnormality. LEFT KIDNEY and URETER: No significant abnormality. STOMACH and SMALL BOWEL: Gastric sleeve surgery again noted. No bowel obstruction. COLON: No significant abnormality. APPENDIX: No significant abnormality. PERITONEUM: No free fluid. No free air. No fluid collection. LYMPH NODES: No significant adenopathy. AORTA and ARTERIES: No significant abnormality. IVC and VEINS: No significant abnormality. URINARY BLADDER: No significant abnormality. REPRODUCTIVE ORGANS: Enlarged leiomyomatous uterus, unchanged ADDITIONAL FINDINGS: Moderate-sized ventral periumbilical abdominal wall hernia containing omental fa t extending into the left para midline subcutaneous soft tissues axial image 109. SKELETAL SYSTEM: No significant abnormality. IMPRESSION: 1. Moderate-sized fat-containing ventral periumbilical abdominal wall hernia. 2. Leiomyomatous uterus, unchanged Signer Name: Clarke Verde MD Signed: 02/05/2022 9:57 AM Workstation Name: [id number]
== END 2022-02-05 07:21 | disposition home or self-care (01) ==
LOC: CT 07:20
PROVIDERS: ATTEND Internal Medicine
DX: Z01.818 Encounter for other preprocedural examination (principal); K46.9 Unspecified abdominal hernia without obstruction or gangrene; D25.9 Leiomyoma of uterus, unspecified; K42.9 Umbilical hernia without obstruction or gangrene; K43.9 Ventral hernia without obstruction or gangrene; Z72.0 Tobacco use
CPT/HCPCS: 71046; 74176

== ENCOUNTER 2022-02-13 07:44 | Day surgery (SDC) | payer BC ==
[~2022-02-13 07:44] MED LIST: SODIUM CHLORIDE 0.9% 1000 ML 1,000 ML IV SCH
--- NOTE | 2022-02-13 08:56 | Anesthesia Day of Surgery ---
Anesthesia Day of Surgery - Day of Surgery Patient Examined: Yes Patient H&P Reviewed: Yes Patient is NPO: Yes
--- NOTE | 2022-02-13 08:57 | Anesthesia Consultation ---
Anesthesia Consult and Med Hx Date of service: 02/13/22 - Airway Anesthetic Teeth Evaluation: Good ROM Head & Neck: Adequate Mental/Hyoid Distance: Adequate Mallampati Class: Class I Intubation Access Assessment: Good - Pre-Operative Health Status ASA Pre-Surgery Classification: ASA2 Proposed Anesthetic Plan: MAC - Pulmonary Hx Smoking: Yes (Quit one month ago) Hx Sleep Apnea: No - Cardiovascular System Hx Hypertension: Yes - Central Nervous System CVA: Yes (TIA vs. anxiety last year. No sxs since then) - Gastrointestinal Hx Gastroesophageal Reflux Disease: Yes (Occasional; s/p gastric sleeve) - Hematic Hx Sickle Cell Disease: No
[2022-02-13] MEDS ORDERED: propofoL 200 MG/20 ML VIAL IV ONE (09:44)
[2022-02-13] MEDS ORDERED: LIDOCAINE MPF (2%) 20 MG/1 ML VIAL 5 ML ONE (09:45)
--- NOTE | 2022-02-13 10:27 | Short Stay Summary ---
Short Stay Documentation Date of service: 02/13/22 Narrative H&P: The patient presents for routine screening colonoscopy, no prior studies and for diagnostic EGD due to chronic recurring nausea and upper abdominal pain. - History Past Medical History: No medical history Past Surgical History: , Other (gastric sleeve) Social history: no significant social history - Allergies and Medications Current Medications: Allergies No Known Allergies Allergy (Verified 11/02/20 18:50) Home Medications Medication Instructions Recorded Confirmed Last Taken Type Aspirin EC [Halfprin EC] 81 mg PO QDAY #30 tablet 11/03/20 Unknown Rx AtorvaSTATin [Lipitor] 40 mg PO QHS #30 tablet 11/03/20 Unknown Rx Ibuprofen [Motrin 600 MG tab] 600 mg PO Q8H PRN #14 tablet 11/03/20 Unknown Rx Active Medications Sodium Chloride (Nacl 0.9% 1000 Ml) 1,000 mls @ 50 mls/hr IV DIRECT ABHI - Physical exam General appearance: no acute distress, well-nourished Integumentary: no rash, no growths, no abnormal pigmentation HEENT: Atraumatic, PERRLA, EOMI, Mucous membr. moist/pink Lungs: Clear to auscultation, Normal air movement Breasts: deferred Heart: Regular rate, Normal S1, Normal S2, No murmurs Gastrointestinal: normoactive bowel sounds, no tenderness, no distended, no masses, no obese Female Genitourinary: deferred Rectal Exam: normal rectal tone, no mass Extremities: no ischemia, pulses intact, pulses symmetrical, No edema, normal temperature, normal color, Full ROM Neurological: Normal gait, Normal speech, Strength at 5/5 X4 ext, Normal tone, Sensation intact, Cranial nerves 3-12 NL - Brief post op/procedure progress note Date of procedure: 02/13/22 Findings: see dictations Estimated blood loss: none Pathology: list (antral biopsies for h pylori) Specimen disposition: to lab Condition: stable - Disposition Condition at discharge: Good Disposition: 01 HOME / SELF CARE / HOMELESS - Discharge Diagnoses (1) Nausea Status: Acute (2) Epigastric pain Status: Acute (3) Colon cancer screening Status: Acute Short Stay Discharge Plan Activity: other (no driving for 24 hours) Weight Bearing Status: Full Weight Bearing Diet: regular Follow up with: DAMION MART MD [Primary Care Provider] - 7 Days
--- NOTE | 2022-02-13 10:29 | Operative Report ---
Operative Report Operative Report: Date of procedure: 02/13/2022 Procedure: Esophagogastroduodenoscopy with biopsies of the antrum for H. pylori Preprocedure diagnosis: Recurrent nausea and epigastric discomfort Post procedure diagnosis: Mild gastritis. Gastric sleeve anatomy Endoscopist: Dr. Perkins Anesthesia: Monitored anesthesia care per anesthesia department Medications: Propofol per anesthesia Estimated blood loss: 0 After careful discussion of the nature and purpose of the procedure as well as details the technique risks benefits and alternatives consent was obtained. The patient was placed in the left lateral decubitus position and medicated per anesthesia. The tip of the ExtendEvent EQ 570 video scope was passed per orum under direct vision into the esophagus and advanced into the stomach and descending duodenum. The descending duodenum the duodenal bulb and pylorus were symmetrical and normal. The scope was withdrawn into the stomach and the stomach then gently insufflated with air. The antrum revealed mild patchy erythema. Biopsies were taken for H. pylori. The stomach was further insufflated and the scope was then retroflexed and partially withdrawn. Gastric sleeve anatomy was present with an intact suture line along the greater curvature. The cardia and fundus of the stomach were within normal limits and easily distensible within the limits of the sleeve anatomy.The scope was then withdrawn in the forward position. The esophagogastric junction was at 39 cm. The esophageal body was normal throughout. The procedure was was well tolerated and the patient was observed in recovery. Impressions: Mild antral gastritis. Gastric sleeve anatomy. Plan: Await biopsies for H. pylori. The patient will call the office in the next 1 to 2 weeks for discussion. Electronically signed: Perez Perkins MD
--- NOTE | 2022-02-13 10:30 | Operative Report ---
Operative Report Operative Report: Date of procedure: 02/13/2022 Preprocedure diagnosis: Colon cancer screening, no prior studies. Average risk. Post procedure diagnosis: Normal study Procedure: Colonoscopy to the cecum Endoscopist: Dr. Perkins Anesthesia: Monitored anesthesia care per anesthesia department Estimated blood loss: 0 Medications: Monitored anesthesia care. See separate report by anesthesia for details. After careful discussion of the nature and purpose of the procedure as well as details of the technique risks benefits and alternatives the patient gave consent. Please see recent history and physical from the office. The patient was placed in the left lateral decubitus position and medicated per anesthesia. A rectal exam was performed sphincter tone was normal there were no masses palpable. The Medlertn 570 scope was passed transanally and advanced under continuous direct vision without difficulty to the cecum. The colon was well prepared. The cecum was normal. The ascending colon was normal and on forward and retroflexed views. The transverse colon, descending colon, and sigmoid colon were normal. The rectum was normal on forward and retroflexed views. The procedure was well-tolerated overall and the patient was observed in recovery. Conclusions: Normal colonoscopy to the cecum. Plan: Repeat colonoscopy in 10 years, sooner if clinically indicated. Signed electronically: Perez Perkins M.D.
[2022-02-13 12:00] VITALS: BP 132/81
--- NOTE | 2022-02-13 16:19 | Post Anesthesia Evaluation ---
- Post Anesthesia Evaluation Patient Participated: Yes Airway Patent: Yes Stable Respiratory Function: Yes Nausea/Vomiting: No Temp > 96.8F: Yes Pain Manageable: Yes Adequeate Hydration: Yes Anesthesia Complications: No Block Receding Appropriately: Not Applicable Patient on Ventilator: No
== END 2022-02-13 11:25 | disposition home or self-care (01) ==
LOC: GIO 07:44
PROVIDERS: ATTEND Internal Medicine Gastroenterology
DX: Z12.11 Encounter for screening for malignant neoplasm of colon (principal); R11.2 Nausea with vomiting, unspecified; R10.13 Epigastric pain; K29.50 Unspecified chronic gastritis without bleeding; E78.00 Pure hypercholesterolemia, unspecified; I10 Essential (primary) hypertension; K21.9 Gastro-esophageal reflux disease without esophagitis; Z87.891 Personal history of nicotine dependence; Z98.890 Other specified postprocedural states; Z79.899 Other long term (current) drug therapy; Z79.82 Long term (current) use of aspirin; Z86.73 Personal history of transient ischemic attack (TIA), and cerebral infarction without residual deficits
CPT/HCPCS: 43239; 45378; 88305; 88342; J2704; J7030